=== PATIENT | male | born 1980 | race Caucasian/White ===

== ENCOUNTER 2021-03-05 11:34 | Inpatient (IN) | payer OTHER ==
[2021-03-05 13:29] LABS: Basophils % (Auto) 0.5 % (0.0-1.8); Eosinophils # (Auto) 0.1 K/mm3 (0.0-0.4); Eosinophils % (Auto) 1.8 % (0.0-4.3); Hemoglobin 13.7 gm/dl (11.8-15.2); Lymphocytes # (Auto) 0.9 K/mm3 (1.2-5.4); Lymphocytes % (Auto) 15.7 % (13.4-35.0); Mean Corpuscular HGB Conc 34 % (32-34); Mean Corpuscular Volume 100 fl (84-94); Monocytes # (Auto) 0.6 K/mm3 (0.0-0.8); Monocytes % (Auto) 10.5 % (0.0-7.3); Platelet Count 219 K/mm3 (140-440); Red Blood Count 3.99 M/mm3 (3.65-5.03); Red Cell Distribution Width 12.8 % (13.2-15.2)
[2021-03-05 13:48] LABS: Alanine Aminotransferase 56 units/L (7-56); Albumin 4.2 g/dL (3.9-5); BUN/Creatinine Ratio 12; Blood Urea Nitrogen 11 mg/dL (9-20); Calcium 9.1 mg/dL (8.4-10.2); Hemolysis Index 9
--- NOTE | 2021-03-05 14:32 | Emergency Department Report ---
ED General Adult HPI - General Chief complaint: Abdominal Pain Stated complaint: ABD PAIN Time Seen by Provider: 03/05/21 14:29 Source: patient Mode of arrival: Ambulatory Limitations: No Limitations - History of Present Illness Initial comments: 41-year-old male patient presents to the emergency department with complaints of right lower quadrant abdominal pain for approximately 1 week. Patient states the pain was intermittent at first but has worsened over the last couple of days. Pain is now constant. No medications prior to arrival. Patient was seen at a local urgent care facility, where his urinalysis was unremarkable and he was advised to come to the emergency department for evaluation of his appendix. No history of prior abdominal surgeries. Denies fever, chills, nausea, vomiting, diarrhea, constipation, testicular pain/swelling. Denies all other complaints at this time. - Related Data Allergies Allergy/AdvReac Type Severity Reaction Status Date / Time No Known Allergies Allergy Unverified 03/05/21 12:12 ED Review of Systems ROS: Stated complaint: ABD PAIN Other details as noted in HPI Other: GENERAL: Negative for fever, chills, weight change, anorexia, fatigue. ENT: Negative for ear pain, difficulty hearing, sore throat, nasal congestion, epistaxis. CARDIOVASCULAR: Negative for chest pain, palpitations, lower extremity swelling. PULMONARY: Negative for cough, dyspnea, wheezing, orthopnea, cyanosis. GASTROINTESTINAL: Positive for abdominal pain. MUSCULOSKELETAL: Negative for joint pain, joint swelling, myalgias, back pain, neck pain. NEUROLOGICAL: Negative for headache, seizure, syncope, paresthesias, weakness. INTEGUMENTARY: Negative for erythema, rash, diaphoresis, laceration, ecchymosis. HEMATOLOGICAL: Negative for hemoptysis, hematemesis, hematochezia, hematuria. PSYCHIATRIC: Negative for hallucinations, suicidal ideation, homicidal ideation, anxiety, depression. ED Past Medical Hx - Past Medical History Previous Medical History?: No - Surgical History Past Surgical History?: No ED Physical Exam - General Limitations: No Limitations - Other Other exam information: General: Awake and alert. No acute distress. Head: Atraumatic, normocephalic. Eyes: EOMI. Pupils are equal and round. Normal sclera and conjunctiva. ENT: Oral mucosa is moist. Normal pharyngeal exam. Neck: Supple. No lymphadenopathy. Pulmonary: No respiratory distress. Clear to auscultation bilaterally. Cardiac: Regular rate and rhythm. Pulses are palpable and equal bilaterally. No lower extremity cyanosis or edema. Skin: Warm and dry. No rashes. Abdomen: Soft, non-protuberant. Right lower quadrant tenderness without guarding, rigidity, or rebound. Bowel sounds are normal. No organomegaly or masses noted. Positive obturator sign. Positive Rovsing sign. Back: Normal alignment. No CVA tenderness. Extremities: Symmetrical. Full range of motion intact. Neurological: Alert and oriented, appropriately interactive, no focal deficits. Psych: Cooperative. Appropriate mood and affect. Speech is evenly metered. Thoughts are logically construed. ED Course Vital Signs 03/05/21 12:12 Temperature 98.2 F Pulse Rate 91 H Respiratory 16 Rate Blood Pressure 121/69 [Left] O2 Sat by Pulse 99 Oximetry ED Medical Decision Making - Lab Data Result diagrams: 03/05/21 12:42 03/05/21 12:42 - Radiology Data [facility] [address] [place] [address] Cat Scan Report Signed Patient: GARTH DALEY MR#: [id number] 2 : 1980 Acct:[id number] Age/Sex: 41 / M ADM Date: 03/05/21 Loc: ED Attending Dr: Ordering Physician: PRABHA PUENTES Date of Service: 03/05/21 Procedure(s): CT abdomen pelvis w con Accession Number(s): [id number] cc: PRABHA PUENTES CT ABDOMEN AND PELVIS WITH CONTRAST INDICATION / CLINICAL INFORMATION: MAIN. TECHNIQUE: Axial CT images were obtained through the abdomen and pelvis after 100 cc Omni [address] scans at this location are performed using CT dose reduction for ALARA by means of automated exposure control. COMPARISON: None available. FINDINGS: LOWER CHEST: No significant abnormality. HEPATOBILIARY: No significant abnormality. PANCREAS/SPLEEN/ADRENALS: No significant abnormality. GENITOURINARY: No significant abnormality. GASTROINTESTINAL/MESENTERY: The appendix is visualized and is mildly prominent with mild wall enhancement and periappendiceal inflammatory change. There is moderate pericecal inflammatory change and a small amount of free fluid. No organized fluid collection or evidence of significant perforation. There is no bowel obstruction. RETROPERITONEUM: No significant adenopathy. REPRODUCTIVE ORGANS: No significant abnormality. VASCULAR: Prominent, focal atherosclerotic calcification with small intramural hematoma at the distal infrarenal abdominal aorta just prior to the bifurcation. This appears chronic as there is partial intimal calcification. No acute dissection. No aneurysm. BODY WALL: No significant abnormality. SKELETAL SYSTEM: No significant abnormality. IMPRESSION: 1. Mild appendiceal inflammation with slightly more prominent inflammatory pericecal changes. No significant perforation or drainable fluid collection. Findings are concerning for mild/early acute appendicitis. 2. Small intramural hematoma at the distal infrarenal abdominal aorta just prior to bifurcation. This appears chronic as there is partial intimal calcification. No acute aortic abnormality. Signer Name: Fermin Brennan MD Signed: 03/05/2021 6:03 PM Workstation Name: [id number] Transcribed By: Dictated By: FERMIN BRENNAN III Electronically Authenticated By: FERMIN BRENNAN III Signed Date/Time: 03/05/211802 DD/ 54 TD/TT: - Medical Decision Making Differential diagnosis including but not limited to: appendicitis, bowel obstruction, bowel perforation, diverticulitis, aortic aneurysm/dissection, pyelonephritis, nephrolithiasis, urinary tract infection On reevaluation, patient remains stable. Repeat abdominal exam without evidence of peritonitis. Patient is afebrile. Vital signs are stable. Labs are unremarkable. CT of the abdomen/pelvis shows appendiceal inflammation, prominent inflammatory pericecal changes, concerning for early acute appendicitis. Case discussed with Dr. Fuentes, general surgeon, who requested N PO and IV Zosyn and agrees to evaluate patient on admission to hospitalist service. Case discussed with Dr. Wells, hospitalist, who agrees to admit. Patient expressed understanding and is agreeable to plan of care. Critical care attestation.: If time is entered above; I have spent that time in minutes in the direct care of this critically ill patient, excluding procedure time. ED Disposition Clinical Impression: Acute appendicitis Qualifiers: Acute appendicitis type: unspecified acute appendicitis type Qualified Code(s): K35.80 - Unspecified acute appendicitis Disposition: OP ADMIT IP TO THIS HOSP Is pt being admited?: Yes Does the pt Need Aspirin: No Condition: Stable Time of Disposition: 18:23
--- NOTE | 2021-03-05 18:07 | Cat Scan Report ---
CT ABDOMEN AND PELVIS WITH CONTRAST INDICATION / CLINICAL INFORMATION: MAIN. TECHNIQUE: Axial CT images were obtained through the abdomen and pelvis after 100 cc Omni [address] scans at this location are performed using CT dose reduction for ALARA by means of automated expos ure control. COMPARISON: None available. FINDINGS: LOWER CHEST: No significant abnormality. HEPATOBILIARY: No significant abnormality. PANCREAS/SPLEEN/ADRENALS: No significant abnormality. GENITOURINARY: No significant abnormality. GASTROINTESTINAL/MESENTERY: The appendix is visualized and is mildly prominent with mild wall enhance ment and periappendiceal inflammatory change. There is moderate pericecal inflammatory change and a s mall amount of free fluid. No organized fluid collection or evidence of significant perforation. Ther e is no bowel obstruction. RETROPERITONEUM: No significant adenopathy. REPRODUCTIVE ORGANS: No significant abnormality. VASCULAR: Prominent, focal atherosclerotic calcification with small intramural hematoma at the distal infrarenal abdominal aorta just prior to the bifurcation. This appears chronic as there is partial i ntimal calcification. No acute dissection. No aneurysm. BODY WALL: No significant abnormality. SKELETAL SYSTEM: No significant abnormality. IMPRESSION: 1. Mild appendiceal inflammation with slightly more prominent inflammatory pericecal changes. No sign ificant perforation or drainable fluid collection. Findings are concerning for mild/early acute appen dicitis. 2. Small intramural hematoma at the distal infrarenal abdominal aorta just prior to bifurcation. This appears chronic as there is partial intimal calcification. No acute aortic abnormality. Signer Name: Fermin Brennan MD Signed: 03/05/2021 6:03 PM Workstation Name: [id number]
[2021-03-05] MEDS ORDERED: PIPERACIL/TAZOBACTA 4.5/NS 100 4.5 GM/100 ML VIAL IV ONE (18:16)
--- NOTE | 2021-03-05 18:44 | Consultation ---
History of Present Illness Consult date: 03/05/21 Reason for consult: abdominal pain - History of present illness History of present illness: O/w healthy 41 yo male with one week h/o RLQ pain, nausea and vomiting. The pain has gotten worse. Medications and Allergies Allergies Allergy/AdvReac Type Severity Reaction Status Date / Time No Known Allergies Allergy Verified 03/05/21 22:19 Home Medications Medication Instructions Recorded Confirmed Last Taken Type No Known Home Medications [No 03/05/21 03/05/21 Unknown History Reported Home Medications] Active Meds: Active Medications Piperacillin Sod/Tazobactam Sod (Zosyn/Ns 4.5gm/100ml) 4.5 gm in 100 mls @ 200 mls/hr IV ONCE ONE; Protocol Stop: 03/05/21 18:45 Review of Systems All systems: negative (none) Exam Vital Signs Temp Pulse Resp BP Pulse Ox 98.2 F 91 H 16 121/69 99 03/05/21 12:12 03/05/21 12:12 03/05/21 12:12 03/05/21 12:12 03/05/21 12:12 - General physical appearance Positive: well developed, well nourished, no distress - Eyes Positive: PERRL, normal occular movement - ENT Positive: normal pinna, normal nares, normal mucosa, no hearing loss, no congestion - Neck Positive: no masses, no bruits, trachea midline, no venous distension - Respiratory Positive: normal expansion, normal respiratory effort, clear to auscultation - Cardiovascular Rhythm: regular Heart Sounds: Present: S1 & S2. Absent: rub, click - Extremities Extremities: no ischemia, pulses symmetrical, No edema - Breasts Breasts: normal, no mass, no skin changes - Abdomen Abdomen: Present: soft, bowel sounds normal, other (Minimally tender to deep palpation in the RLQ without rebound or guarding.). Absent: distended Hernia: none - Genitourinary Male Genitourinary: normal Female Genitourinary: normal - Integumentary no rash, no growths, no abnormal pigmentation - Neurologic Neurologic: alert and oriented to time, place and person, motor strength and sensation are grossly intact - Musculoskeletal normal gait, normal posture - Psychiatric Psychiatric: appropriate mood/affect, intact judgment & insight Results - Labs 03/06/21 04:13 03/06/21 04:13 Abnormal lab results 03/05/21 03/05/21 Range/Units 12:42 12:42 MCV 100 H (84-94) fl MCH 34 H (28-32) pg RDW 12.8 L (13.2-15.2) % [place] % (Auto) 10.5 H (0.0-7.3) % Lymph # (Auto) 0.9 L (1.2-5.4) K/mm3 Seg Neutrophils % 71.5 H (40.0-70.0) % Alkaline Phosphatase 130 H (35-129) units/L Diabetes panel 03/05/21 Range/Units 12:42 Sodium 143 (137-145) mmol/L Potassium 4.2 (3.6-5.0) mmol/L Chloride 104.6 (98-107) mmol/L Carbon Dioxide 29 (22-30) mmol/L BUN 11 (9-20) mg/dL Creatinine 0.9 (0.8-1.3) mg/dL Glucose 94 (75-100) mg/dL Calcium 9.1 (8.4-10.2) mg/dL AST 32 (5-40) units/L ALT 56 (7-56) units/L Alkaline Phosphatase 130 H (35-129) units/L Total Protein 6.8 (6.3-8.2) g/dL Albumin 4.2 (3.9-5) g/dL Calcium panel 03/05/21 Range/Units 12:42 Calcium 9.1 (8.4-10.2) mg/dL Albumin 4.2 (3.9-5) g/dL Pituitary panel 03/05/21 Range/Units 12:42 Sodium 143 (137-145) mmol/L Potassium 4.2 (3.6-5.0) mmol/L Chloride 104.6 (98-107) mmol/L Carbon Dioxide 29 (22-30) mmol/L BUN 11 (9-20) mg/dL Creatinine 0.9 (0.8-1.3) mg/dL Glucose 94 (75-100) mg/dL Calcium 9.1 (8.4-10.2) mg/dL Adrenal panel 03/05/21 Range/Units 12:42 Sodium 143 (137-145) mmol/L Potassium 4.2 (3.6-5.0) mmol/L Chloride 104.6 (98-107) mmol/L Carbon Dioxide 29 (22-30) mmol/L BUN 11 (9-20) mg/dL Creatinine 0.9 (0.8-1.3) mg/dL Glucose 94 (75-100) mg/dL Calcium 9.1 (8.4-10.2) mg/dL Total Bilirubin 0.40 (0.1-1.2) mg/dL AST 32 (5-40) units/L ALT 56 (7-56) units/L Alkaline Phosphatase 130 H (35-129) units/L Total Protein 6.8 (6.3-8.2) g/dL Albumin 4.2 (3.9-5) g/dL - Imaging CT scan - abdomen: report reviewed CT scan - pelvis: report reviewed Assessment and Plan - Patient Problems (1) Acute appendicitis Current Visit: Yes Status: Acute Qualifiers: Acute appendicitis type: unspecified acute appendicitis type Qualified Code(s): K35.80 - Unspecified acute appendicitis Plan to address problem: 1) NPO 2) IV Zosyn 3) To OR in the morning for lap appy
[2021-03-05] MEDS ORDERED: HYDROmorphone 1 MG/1 ML INJ IV PRN (19:55)
--- NOTE | 2021-03-05 22:08 | History and Physical Report ---
History of Present Illness Date of examination: 03/05/21 Date of admission: 03/05/21 18:23 Chief complaint: Right lower quadrant pain for 1 week History of present illness: 41-year-old male presents with right lower quadrant pain of approximately 1 week duration. Patient has no significant past medical history. Pain is about 8-10 on a scale of 1-10. Pain was intermittent for the last 1 week but constant today. Patient was seen irregular urgent care facility and was sent to the emergency room for evaluation. No history of abdominal surgeries in the past. No history of appendectomy in the past. No exacerbating or relieving factors. Pain is localized to the right lower quadrant. Associated with nausea. Vomiting for couple of times. - Past Medical History --Previous Medical History?: No - Surgical History --Past Surgical History?: No -Family history --no significant family history -Social history Does not smoke or use alcohol or drugs Review of Systems ROS: Stated complaint: ABD PAIN Other details as noted in HPI Other: GENERAL: Negative for fever, chills, weight change, anorexia, fatigue. ENT: Negative for ear pain, difficulty hearing, sore throat, nasal congestion, epistaxis. CARDIOVASCULAR: Negative for chest pain, palpitations, lower extremity swelling. PULMONARY: Negative for cough, dyspnea, wheezing, orthopnea, cyanosis. GASTROINTESTINAL: Positive for abdominal pain. MUSCULOSKELETAL: Negative for joint pain, joint swelling, myalgias, back pain, neck pain. NEUROLOGICAL: Negative for headache, seizure, syncope, paresthesias, weakness. INTEGUMENTARY: Negative for erythema, rash, diaphoresis, laceration, ecchymosis. HEMATOLOGICAL: Negative for hemoptysis, hematemesis, hematochezia, hematuria. PSYCHIATRIC: Negative for hallucinations, suicidal ideation, homicidal ideation, anxiety, depression. Medications and Allergies Allergies Allergy/AdvReac Type Severity Reaction Status Date / Time No Known Allergies Allergy Unverified 03/05/21 12:12 Active Meds: Active Medications Hydromorphone HCl (Hydromorphone 1 Mg/1 Ml Inj) 0.5 mg IV Q3H PRN PRN Reason: Pain , Severe (7-10) Exam - Constitutional Vitals: Temp Pulse Resp BP Pulse Ox 98.7 F 56 L 12 131/68 100 03/05/21 20:06 03/05/21 21:54 03/05/21 21:54 03/05/21 21:54 03/05/21 21:54 General appearance: Present: no acute distress, well-nourished - EENT Eyes: Present: PERRL ENT: hearing intact, clear oral mucosa - Neck Neck: Present: supple, normal ROM - Respiratory Respiratory effort: normal Respiratory: bilateral: CTA - Cardiovascular Heart rate: 78 Rhythm: regular Heart Sounds: Present: S1 & S2. Absent: rub, click - Extremities Extremities: pulses symmetrical, No edema Peripheral Pulses: within normal limits - Abdominal General gastrointestinal: Present: soft, tender, non-distended, normal bowel sounds Localized gastrointestinal: tender: RLQ, guarding: RLQ, rebound: RLQ Male genitourinary: Present: normal - Integumentary Integumentary: Present: clear, warm, dry - Musculoskeletal Musculoskeletal: gait normal, strength equal bilaterally - Psychiatric Psychiatric: appropriate mood/affect, intact judgment & insight - Neurologic Neurologic: CNII-XII intact, moves all extremities - Allied Health Allied health notes reviewed: nursing, case management Results - Labs CBC & Chem 7: 03/05/21 12:42 03/05/21 12:42 Labs: Laboratory Last Values WBC 5.5 K/mm3 (4.5-11.0) 03/05/21 12:42 RBC 3.99 M/mm3 (3.65-5.03) 03/05/21 12:42 Hgb 13.7 gm/dl (11.8-15.2) 03/05/21 12:42 Hct 40.0 % (35.5-45.6) 03/05/21 12:42 MCV 100 fl (84-94) H 03/05/21 12:42 MCH 34 pg (28-32) H 03/05/21 12:42 MCHC 34 % (32-34) 03/05/21 12:42 RDW 12.8 % (13.2-15.2) L 03/05/21 12:42 Plt Count 219 K/mm3 (140-440) 03/05/21 12:42 Lymph % (Auto) 15.7 % (13.4-35.0) 03/05/21 12:42 [place] % (Auto) 10.5 % (0.0-7.3) H 03/05/21 12:42 Eos % (Auto) 1.8 % (0.0-4.3) 03/05/21 12:42 Baso % (Auto) 0.5 % (0.0-1.8) 03/05/21 12:42 Lymph # (Auto) 0.9 K/mm3 (1.2-5.4) L 03/05/21 12:42 [place] # (Auto) 0.6 K/mm3 (0.0-0.8) 03/05/21 12:42 Eos # (Auto) 0.1 K/mm3 (0.0-0.4) 03/05/21 12:42 Baso # (Auto) 0.0 K/mm3 (0.0-0.1) 03/05/21 12:42 Seg Neutrophils % 71.5 % (40.0-70.0) H 03/05/21 12:42 Seg Neutrophils # 3.9 K/mm3 (1.8-7.7) 03/05/21 12:42 Sodium 143 mmol/L (137-145) 03/05/21 12:42 Potassium 4.2 mmol/L (3.6-5.0) 03/05/21 12:42 Chloride 104.6 mmol/L (98-107) 03/05/21 12:42 Carbon Dioxide 29 mmol/L (22-30) 03/05/21 12:42 Anion Gap 14 mmol/L 03/05/21 12:42 BUN 11 mg/dL (9-20) 03/05/21 12:42 Creatinine 0.9 mg/dL (0.8-1.3) 03/05/21 12:42 Estimated GFR > 60 ml/min 03/05/21 12:42 BUN/Creatinine Ratio 12 % 03/05/21 12:42 Glucose 94 mg/dL (75-100) 03/05/21 12:42 Calcium 9.1 mg/dL (8.4-10.2) 03/05/21 12:42 Total Bilirubin 0.40 mg/dL (0.1-1.2) 03/05/21 12:42 AST 32 units/L (5-40) 03/05/21 12:42 ALT 56 units/L (7-56) 03/05/21 12:42 Alkaline Phosphatase 130 units/L (35-129) H 03/05/21 12:42 Total Protein 6.8 g/dL (6.3-8.2) 03/05/21 12:42 Albumin 4.2 g/dL (3.9-5) 03/05/21 12:42 Albumin/Globulin Ratio 1.6 % 03/05/21 12:42 Lipase 39 units/L (13-60) 03/05/21 12:42 - Imaging and Cardiology Imaging and Cardiology: CT of the abdomen and pelvis Mild appendiceal inflammation with slightly more prominent inflammatory pericecal changes. No significant perforation or drainable fluid collection. Findings are concerning for mild/early acute appendicitis. Small intramural hematoma at the distal infrarenal abdominal aorta just prior to bifurcation. This appears chronic as there is partial intimal calcification. No acute aortic abnormality. Assessment and Plan Advance Directives: Yes (Full code) VTE prophylaxis?: Chemical Plan of care discussed with patient/family: Yes - Patient Problems (1) Acute appendicitis Current Visit: Yes Status: Acute Qualifiers: Acute appendicitis type: unspecified acute appendicitis type Qualified Code(s): K35.80 - Unspecified acute appendicitis Plan to address problem: Surgery consult IV antibiotics Pain control IV Zofran every 3 as needed IV fluids (2) DVT prophylaxis Current Visit: Yes Status: Acute Plan to address problem: On heparin and GI prophylaxis
[2021-03-05] MEDS ORDERED: MORPHINE 2 MG/1 ML INJ IV PRN (22:14)
[2021-03-05] MEDS ORDERED: ONDANSETRON 4 MG/2 ML INJ IV PRN (22:14)
[2021-03-05] MEDS ORDERED: METOCLOPRAMIDE 10 MG/2 ML INJ IV PRN (22:14)
[2021-03-05] MEDS ORDERED: ACETAMINOPHEN 325 MG TAB PO PRN (22:14)
[2021-03-05] MEDS: D5W/0.9% NACL 1,000 ML IV SCH (22:38)
[2021-03-05] MEDS: FAMOTIDINE 20 MG/2 ML INJ IV SCH (22:40)
[2021-03-05 23:21] LABS: Bilirubin,Urine NEG (Negative); Blood,Urine SM (Negative); Color,Urine Straw (Yellow); Mucus,Urine FEW /HPF; Protein,Urine <15 mg/dL mg/dL (Negative); Urobilinogen,Urine < 2.0 mg/dL (<2.0)
[2021-03-05 23:29] LABS: WBC,Urine < 1.0 /HPF (0.0-6.0)
[2021-03-06] MEDS: PIPERACIL/TAZOBACTA 4.5/NS 100 4.5 GM/100 ML VIAL IV SCH ×3 (03:49→21:17)
[2021-03-06 04:49] LABS: Basophils % (Auto) 0.6 % (0.0-1.8); Eosinophils # (Auto) 0.2 K/mm3 (0.0-0.4); Eosinophils % (Auto) 3.8 % (0.0-4.3); Hematocrit 38.1 % (35.5-45.6); Lymphocytes # (Auto) 1.3 K/mm3 (1.2-5.4); Lymphocytes % (Auto) 28.8 % (13.4-35.0); Mean Corpuscular HGB Conc 34 % (32-34); Mean Corpuscular Volume 100 fl (84-94); Monocytes # (Auto) 0.4 K/mm3 (0.0-0.8); Platelet Count 205 K/mm3 (140-440); Red Blood Count 3.82 M/mm3 (3.65-5.03); Red Cell Distribution Width 12.7 % (13.2-15.2)
[2021-03-06 05:08] LABS: Alanine Aminotransferase 48 units/L (7-56); Albumin 3.8 g/dL (3.9-5); BUN/Creatinine Ratio 9; Blood Urea Nitrogen 7 mg/dL (9-20); Calcium 8.4 mg/dL (8.4-10.2); Hemolysis Index 2
--- NOTE | 2021-03-06 09:08 | Progress Note ---
Assessment and Plan Assessment and plan: 41-year-old male who presents with abdominal pain secondary to early onset acute appendicitis Acute appendicitis CT report reviewed Surgery consulted, plans for surgery this morning, however after speaking with the patient today, he states that he is feeling better and would like to go home on antibiotics. Surgery will be contacted for further recommendations Continue Zosyn antibiotics Patient is n.p.o. at this time Disposition: As above, surgery needs to discuss risks and benefits of declining or having surgery. Will await further recommendations, patient sent diet will need to be advanced to make sure he is able to tolerate food. History Interval history: 03/06/2020: Patient seen and examined, states that he is feeling better this morning. Spoke with the patient pertaining to surgical plans, patient is declining any surgical intervention at this time and states that he would like to go home since he feels better. I spoke with him pertaining to findings on his exam as to early appendicitis, however patient states he declined surgical intervention and would simply like antibiotics. Spoke with the nursing staff and informed him, OR and surgeon will be notified. Hospitalist Physical - Physical exam Narrative exam: General appearance: no acute distress, well-nourished EENT: PERRL, EOM intact, hearing intact, clear oral mucosa Neck: Present: supple, normal ROM Respiratory: bilateral CTA, negative: rales, rhonchi, wheezing Cardiovascular: Regular rate/rhythm, Normal S1 & S2. No gallop, rub Extremities: no ischemia, No edema, normal temperature, normal color, Full ROM Abdominal: soft nontender, nondistended, normal bowel sounds Integumentary: Present: clear, warm, dry no wounds, no erythema noted Psychiatric: appropriate mood/affect, intact judgment & insight Neurologic: CNII-XII intact, moves all extremities, no sensory or motor abnormalities - Constitutional Vitals: Temp Pulse Resp BP Pulse Ox 97.6 F 54 L 16 117/66 100 03/06/21 06:56 03/06/21 06:56 03/06/21 06:56 03/06/21 06:56 03/06/21 06:56 General appearance: Present: no acute distress, well-nourished Results - Labs CBC & Chem 7: 03/06/21 04:13 03/06/21 04:13 Labs: Laboratory Last Values WBC 4.5 K/mm3 (4.5-11.0) 03/06/21 04:13 RBC 3.82 M/mm3 (3.65-5.03) 03/06/21 04:13 Hgb 13.0 gm/dl (11.8-15.2) 03/06/21 04:13 Hct 38.1 % (35.5-45.6) 03/06/21 04:13 MCV 100 fl (84-94) H 03/06/21 04:13 MCH 34 pg (28-32) H 03/06/21 04:13 MCHC 34 % (32-34) 03/06/21 04:13 RDW 12.7 % (13.2-15.2) L 03/06/21 04:13 Plt Count 205 K/mm3 (140-440) 03/06/21 04:13 Lymph % (Auto) 28.8 % (13.4-35.0) 03/06/21 04:13 [place] % (Auto) 10.0 % (0.0-7.3) H 03/06/21 04:13 Eos % (Auto) 3.8 % (0.0-4.3) 03/06/21 04:13 Baso % (Auto) 0.6 % (0.0-1.8) 03/06/21 04:13 Lymph # (Auto) 1.3 K/mm3 (1.2-5.4) 03/06/21 04:13 [place] # (Auto) 0.4 K/mm3 (0.0-0.8) 03/06/21 04:13 Eos # (Auto) 0.2 K/mm3 (0.0-0.4) 03/06/21 04:13 Baso # (Auto) 0.0 K/mm3 (0.0-0.1) 03/06/21 04:13 Seg Neutrophils % 56.8 % (40.0-70.0) 03/06/21 04:13 Seg Neutrophils # 2.6 K/mm3 (1.8-7.7) 03/06/21 04:13 Sodium 141 mmol/L (137-145) 03/06/21 04:13 Potassium 3.3 mmol/L (3.6-5.0) L D 03/06/21 04:13 Chloride 103.3 mmol/L (98-107) 03/06/21 04:13 Carbon Dioxide 28 mmol/L (22-30) 03/06/21 04:13 Anion Gap 13 mmol/L 03/06/21 04:13 BUN 7 mg/dL (9-20) L 03/06/21 04:13 Creatinine 0.8 mg/dL (0.8-1.3) 03/06/21 04:13 Estimated GFR > 60 ml/min 03/06/21 04:13 BUN/Creatinine Ratio 9 % 03/06/21 04:13 Glucose 97 mg/dL (75-100) 03/06/21 04:13 Hemoglobin A1c 5.0 % (4-6) 03/06/21 04:13 Calcium 8.4 mg/dL (8.4-10.2) 03/06/21 04:13 Total Bilirubin 0.40 mg/dL (0.1-1.2) 03/06/21 04:13 AST 27 units/L (5-40) 03/06/21 04:13 ALT 48 units/L (7-56) 03/06/21 04:13 Alkaline Phosphatase 109 units/L (35-129) 03/06/21 04:13 Total Protein 6.1 g/dL (6.3-8.2) L 03/06/21 04:13 Albumin 3.8 g/dL (3.9-5) L 03/06/21 04:13 Albumin/Globulin Ratio 1.7 % 03/06/21 04:13 Lipase 39 units/L (13-60) 03/05/21 12:42 Urine Color Straw (Yellow) 03/05/21 23:00 Urine Turbidity Clear (Clear) 03/05/21 23:00 Urine pH 5.0 (5.0-7.0) 03/05/21 23:00 Ur Specific [place] 1.028 (1.003-1.030) 03/05/21 23:00 Urine Protein <15 mg/dl mg/dL (Negative) 03/05/21 23:00 Urine Glucose (UA) Neg mg/dL (Negative) 03/05/21 23:00 Urine Ketones Neg mg/dL (Negative) 03/05/21 23:00 Urine Blood Sm (Negative) 03/05/21 23:00 Urine Nitrite Neg (Negative) 03/05/21 23:00 Urine Bilirubin Neg (Negative) 03/05/21 23:00 Urine Urobilinogen < 2.0 mg/dL (<2.0) 03/05/21 23:00 Ur Leukocyte Esterase Neg (Negative) 03/05/21 23:00 Urine WBC (Auto) < 1.0 /HPF (0.0-6.0) 03/05/21 23:00 Urine RBC (Auto) 1.0 /HPF (0.0-6.0) 03/05/21 23:00 U Epithel Cells (Auto) < 1.0 /HPF (0-13.0) 03/05/21 23:00 Urine Mucus Few /HPF 03/05/21 23:00 Weeks/IV: Voiding Method Toilet Active Medications - Current Medications Current Medications: Generic Name Dose Route Start Last Admin Trade Name Freq PRN Reason Stop Dose Admin Acetaminophen 650 mg 03/05/21 22:14 Acetaminophen 325 Mg Tab PO Q4H PRN Pain MILD(1-3)/Fever >100.5/EWING Famotidine 20 mg 03/05/21 23:00 03/05/21 22:40 Famotidine 20 Mg/2 Ml Inj IV 20 mg BID MARGARET Administration Heparin Sodium (Porcine) 5,000 unit 03/06/21 10:00 Heparin 5,000 Unit/1 Ml Vial SUB-Q Q12HR MARGARET Hydromorphone HCl 0.5 mg 03/05/21 19:55 Hydromorphone 1 Mg/1 Ml Inj IV Q3H PRN Pain , Severe (7-10) Dextrose/Sodium Chloride 1,000 mls @ 75 mls/hr 03/05/21 23:00 03/05/21 22:38 D5ns IV 75 mls/hr DIRECT MARGARET Administration Piperacillin Sod/Tazobactam Sod 4.5 gm in 100 mls @ 200 mls/hr 03/06/21 04:00 03/06/21 03:49 Zosyn/Ns 4.5gm/100ml IV 200 mls/hr Q8H MARGARET Administration Protocol Metoclopramide HCl 10 mg 03/05/21 22:14 Metoclopramide 10 Mg/2 Ml Inj IV Q6H PRN Nausea And Vomiting Morphine Sulfate 2 mg 03/05/21 22:14 03/05/21 22:38 Morphine 2 Mg/1 Ml Inj IV 2 mg Q4H PRN Administration Pain, Moderate (4-6) Ondansetron HCl 4 mg 03/05/21 22:14 Ondansetron 4 Mg/2 Ml Inj IV Q3H PRN Nausea And Vomiting Sodium Chloride 10 ml 03/06/21 10:00 Sodium Chloride 0.9% 10 Ml Flush Syringe IV BID MARGARET Sodium Chloride 10 ml 03/05/21 22:14 Sodium Chloride 0.9% 10 Ml Flush Syringe IV PRN PRN LINE FLUSH
[2021-03-06] MEDS: FAMOTIDINE 20 MG/2 ML INJ IV SCH ×2 (09:13→22:23)
[2021-03-06] MEDS: D5W/0.9% NACL 1,000 ML IV SCH (09:13)
--- NOTE | 2021-03-06 12:17 | Progress Note ---
Assessment and Plan - Patient Problems (1) Acute appendicitis Current Visit: Yes Status: Acute Qualifiers: Acute appendicitis type: unspecified acute appendicitis type Qualified Code(s): K35.80 - Unspecified acute appendicitis Plan to address problem: 1) Since pt is improving, CT is somewhat equivocal and pt does not want to have surgery, I do not feel that lap appendectomy is mandatory. 2) CLD 3) Continue Zosyn 4) CBC and BMP in the am Subjective Date of service: 03/06/21 Patient Reports: Positive: feels better (Pt is very hungry and denies abdominal pain. Says he doesn't want to have surgery.) Objective Vital Signs - 12hr 03/06/21 03/06/21 03/06/21 00:45 06:56 10:56 Temperature 97.6 F 97.6 F 98.1 F Pulse Rate 54 L 54 L 73 Respiratory 18 16 16 Rate Blood Pressure 117/66 118/76 Blood Pressure 116/67 [Left] O2 Sat by Pulse 99 100 98 Oximetry - Abdomen soft, bowel sounds normal (non-tender without rebound or guarding.) Hernia: none - Labs 03/06/21 04:13 03/06/21 04:13 Diabetes panel 03/05/21 03/06/21 03/06/21 Range/Units 12:42 04:13 04:13 Sodium 143 141 (137-145) mmol/L Potassium 4.2 3.3 L D (3.6-5.0) mmol/L Chloride 104.6 103.3 (98-107) mmol/L Carbon Dioxide 29 28 (22-30) mmol/L BUN 11 7 L (9-20) mg/dL Creatinine 0.9 0.8 (0.8-1.3) mg/dL Glucose 94 97 (75-100) mg/dL Hemoglobin A1c 5.0 (4-6) % Calcium 9.1 8.4 (8.4-10.2) mg/dL AST 32 27 (5-40) units/L ALT 56 48 (7-56) units/L Alkaline Phosphatase 130 H 109 (35-129) units/L Total Protein 6.8 6.1 L (6.3-8.2) g/dL Albumin 4.2 3.8 L (3.9-5) g/dL Calcium panel 03/05/21 03/06/21 Range/Units 12:42 04:13 Calcium 9.1 8.4 (8.4-10.2) mg/dL Albumin 4.2 3.8 L (3.9-5) g/dL Pituitary panel 03/05/21 03/06/21 Range/Units 12:42 04:13 Sodium 143 141 (137-145) mmol/L Potassium 4.2 3.3 L D (3.6-5.0) mmol/L Chloride 104.6 103.3 (98-107) mmol/L Carbon Dioxide 29 28 (22-30) mmol/L BUN 11 7 L (9-20) mg/dL Creatinine 0.9 0.8 (0.8-1.3) mg/dL Glucose 94 97 (75-100) mg/dL Calcium 9.1 8.4 (8.4-10.2) mg/dL Adrenal panel 03/05/21 03/06/21 Range/Units 12:42 04:13 Sodium 143 141 (137-145) mmol/L Potassium 4.2 3.3 L D (3.6-5.0) mmol/L Chloride 104.6 103.3 (98-107) mmol/L Carbon Dioxide 29 28 (22-30) mmol/L BUN 11 7 L (9-20) mg/dL Creatinine 0.9 0.8 (0.8-1.3) mg/dL Glucose 94 97 (75-100) mg/dL Calcium 9.1 8.4 (8.4-10.2) mg/dL Total Bilirubin 0.40 0.40 (0.1-1.2) mg/dL AST 32 27 (5-40) units/L ALT 56 48 (7-56) units/L Alkaline Phosphatase 130 H 109 (35-129) units/L Total Protein 6.8 6.1 L (6.3-8.2) g/dL Albumin 4.2 3.8 L (3.9-5) g/dL
[2021-03-06] MEDS: HEPARIN 5,000 UNIT/1 ML VIAL SUB-Q SCH ×2 (13:48→22:24)
[2021-03-07 04:45] LABS: Basophils % (Auto) 0.9 % (0.0-1.8); Eosinophils # (Auto) 0.2 K/mm3 (0.0-0.4); Eosinophils % (Auto) 3.4 % (0.0-4.3); Hematocrit 38.9 % (35.5-45.6); Hemoglobin 13.2 gm/dl (11.8-15.2); Lymphocytes # (Auto) 1.3 K/mm3 (1.2-5.4); Lymphocytes % (Auto) 27.6 % (13.4-35.0); Mean Corpuscular HGB Conc 34 % (32-34); Mean Corpuscular Volume 100 fl (84-94); Monocytes # (Auto) 0.5 K/mm3 (0.0-0.8); Monocytes % (Auto) 10.5 % (0.0-7.3); Platelet Count 230 K/mm3 (140-440); Red Blood Count 3.88 M/mm3 (3.65-5.03); Red Cell Distribution Width 12.8 % (13.2-15.2)
[2021-03-07] MEDS: D5W/0.9% NACL 1,000 ML IV SCH (04:57)
[2021-03-07] MEDS: PIPERACIL/TAZOBACTA 4.5/NS 100 4.5 GM/100 ML VIAL IV SCH (04:57)
[2021-03-07 05:07] LABS: BUN/Creatinine Ratio 7; Blood Urea Nitrogen 6 mg/dL (9-20); Calcium 8.4 mg/dL (8.4-10.2); Hemolysis Index 2
[2021-03-07 07:40] VITALS: BP 111/68
--- NOTE | 2021-03-07 09:06 | Discharge Summary ---
Providers - Providers Date of Admission: 03/05/21 18:23 Date of discharge: 03/07/21 Attending physician: ANNABELLE LEBRON MD 03/05/21 18:17 Consult to Physician [CONS] Stat Comment: Consulting Provider: LYNNE FUENTES Physician Instructions: Reason For Exam: acute appendicitis Primary care physician: [facility] Hospitalization Reason for admission: acute abdominal pain/acute appendicitis Condition: Stable Hospital course: 41-year-old male who presents with abdominal pain secondary to early onset acute appendicitis. Within 24 hours after receiving antibiotics, patient improved. Patient was followed by general surgery who recommended lap appendectomy but patient refused. Patient was monitored, CBC was normal, patient was tolerating diet, general surgery recommended patient to be discharged on Levaquin and follow-up in 1 week. Disposition: TO HOME OR SELFCARE Final Discharge Diagnosis (Prints w/discharge instructions): Acute appendicitis Time spent for discharge: 35 minutes Core Measure Documentation - Palliative Care Palliative Care/ Comfort Measures: Not Applicable - Core Measures Any of the following diagnoses?: none Exam - Physical Exam Narrative exam: General appearance: no acute distress, well-nourished EENT: PERRL, EOM intact, hearing intact, clear oral mucosa Neck: Present: supple, normal ROM Respiratory: bilateral CTA, negative: rales, rhonchi, wheezing Cardiovascular: Regular rate/rhythm, Normal S1 & S2. No gallop, rub Extremities: no ischemia, No edema, normal temperature, normal color, Full ROM Abdominal: soft nontender, nondistended, normal bowel sounds Integumentary: Present: clear, warm, dry no wounds, no erythema noted Psychiatric: appropriate mood/affect, intact judgment & insight Neurologic: CNII-XII intact, moves all extremities, no sensory or motor abnormalities - Constitutional Vitals: Temp Pulse Resp BP Pulse Ox 97.0 F L 56 L 16 111/68 99 03/07/21 07:11 03/07/21 07:11 03/07/21 07:11 03/07/21 07:11 03/07/21 07:11 Plan Activity: no restrictions Diet: regular Care Plan Goals: As below Plan of Treatment: Please continue taking antibiotics for 1 week. Please follow-up with general surgery, Dr. Fuentes in the office. Health Concerns: If you are having any nausea or vomiting fevers or chills or abdominal pain, please return to the hospital immediately for reevaluation. Follow up with: PRIMARY CARE, [Primary Care Provider] - 3-5 Days LYNNE FUENTES MD [Staff Physician] - 7 Days Prescriptions: levoFLOXacin [Levaquin] 750 mg PO QDAY #7 tablet
== END 2021-03-07 11:55 | disposition home or self-care (01) | DRG 395 ==
LOC: ED 11:34 → 3B-SURG 18:23
PROVIDERS: ADMIT Internal Medicine; ATTEND Family Medicine
DX: K35.80 Unspecified acute appendicitis (principal); Z53.29 Procedure and treatment not carried out because of patient's decision for other reasons
CPT/HCPCS: 36415; 74177; 80048; 80053; 81001; 83036; 83690; 85025; 96365; G0378; J1644; J2270; J2543; J7042; Q9967